=== PATIENT | female | born 1985 | race African-American/Black ===

== ENCOUNTER 2019-09-02 14:11 | Emergency (ER) | payer OTHER, SELFPAY ==
[2019-09-02 14:13] VITALS: BP 123/80; PULSE 89; RESP 18; TEMP 36.4; O2SAT 99
[2019-09-02 14:23] LABS: Basophils Absolute Auto 0.1 K/mm3 (0.0-0.1); Basophils Percent Auto 0.7 % (0.2-1.2); Eosinophils Absolute Auto 0.1 K/mm3 (0-0.3); Eosinophils Percent Auto 1.2 % (0-4.4); Hematocrit 36.3 % (37.0-47.0); Immature Granulocyte Absolute 0.04 K/mm3 (0.00-0.031); Immature Granulocyte Percent A 0.4 % (0-0.5); Lymphocytes Absolute Auto 2.78 K/mm3 (0.9-3.2); Mean Corpuscular HGB Conc 30.3 g/dl (32-36); Mean Corpuscular Hemoglobin 23.3 pg (26-34); Mean Corpuscular Volume 76.9 fl (80-100); Mean Platelet Volume 8.9 fl (7.4-10.4); Monocytes Absolute Auto 0.7 K/mm3 (0.1-0.6); Monocytes Percent Auto 6.1 % (2.6-8.5); Neutrophils Absolute Auto 7.4 K/mm3 (1.3-6.7); Neutrophils Percent Auto 66.6 % (45.5-73.1); Platelet Count Result 464 k/mm3 (150-375); Red Blood Count 4.72 M/mm3 (4.2-5.4); Red Cell Distribution Width 13.2 % (11.5-14.5); White Blood Count 11.1 K/mm3 (4.5-10.0)
[2019-09-02 14:36] LABS: Alanine Aminotransferase 17 U/L (4-35); Albumin Level 4.4 g/dL (3.5-5.1); Alkaline Phosphatase 84 U/L (38-126); Aspartate Amino Transferase 21 U/L (14-36); Bilirubin,Total 0.3 mg/dL (0.2-1.3); Blood Urea Nitrogen 12 mg/dL (7-17); Carbon Dioxide 23 mmol/L (22-30); Chloride 105 mmol/L (98-107); Estimated CRCL calculation 124 ml/min; Estimated Glomerular Filt Rate > 60; Glucose 99 mg/dL (65-105); Lipase 114 U/L (23-300); Potassium 3.8 mmol/L (3.4-5.0); Sodium 139 mmol/L (137-145)
--- NOTE | 2019-09-02 14:38 | ED.NAVMDI ---
HPI - Nausea/Vomiting/Diarrhea General Chief complaint: Abdominal Pain Stated complaint: Diarrhea Time Seen by Provider: 09/02/19 14:25 Source: patient and RN notes reviewed Mode of arrival: ambulatory Limitations: no limitations History of Present Illness HPI Narrative: Pt is a 34 y/o female who presents to the ED with c/o diarrhea which began 4 days ago. Pt states the diarrhea is watery, but she denies any rectal bleeding. She states she had 5 separate episodes of diarrhea yesterday. Pt reports she has not been drinking enough fluids throughout the day. Pt reports intermittent diffuse ABD cramping, a poor appetite, decreased urination, and a headache, but denies a fever, sore throat, a cough, sinus congestion, nausea, or vomiting. She reports she experiences the intermittent ABD cramping when she is laying in bed. She denies anyone around her being sick recently which could have given her something. MD elicited complaint: diarrhea Onset (ago): day(s) (4 days ago) Description of diarrhea: watery Associated abdominal pain: Yes (ABD cramping intermittently) Location of pain: diffuse Radiation: does not radiate Pain consistency: intermittent Quality: cramping Exacerbating factors: none Relieving factors: none Associated symptoms: headaches and loss of appetite Related Data Home Medications Medication Instructions Recorded Confirmed fluoxetine mg 09/02/19 Allergies Allergy/AdvReac Type Severity Reaction Status Date / Time No Known Allergies Allergy Unverified 10/19/17 09:11 Review of Systems Review of Systems: All systems reviewed & are unremarkable except as noted in HPI and below Constitutional: Constitutional: Denies fever(s) and Reports poor appetite ENT: Denies sore throat and Denies other (sinus congestion) Respiratory: Respiratory: Denies cough Gastrointestinal: Gastrointestinal: Reports abdominal pain (diffuse ABD cramping), Denies hematochezia (rectal bleeding), Reports diarrhea, Denies nausea and Denies vomiting Genitourinary: Genitourinary: Reports other (decreased urination) Neurologic: Reports headache(s) [facility] Past Medical History Medical History (Updated 09/02/19 @ 16:33 by Iona Sorensen MD) Deficient knowledge of caesarean delivery Surgical History Surgical History (Updated 09/02/19 @ 14:43 by Cecy Liang) Hx of cholecystectomy Social History Social History (Updated 09/02/19 @ 14:43 by Cecy Ny Smoking status: Never smoker Comments PCP: Dr. Betts Exam Const: General: cooperative, no acute distress and alert Nutritional Appearance: well nourished Orientation/consciousness: patient oriented x3 Limitations: no limitations HENMT: Mouth: Yes lip normal and Yes moist mucous membranes Resp: Effort & Inspection: normal respiratory effort Auscultation: clear to auscultation bilaterally Cardio: Rate: regular rate Rhythm: regular rhythm GI: GI Palp: Yes Soft to palpation, No Guarding due to palpation present (GI) and No Rebound tenderness present Auscultation: normal bowel sounds Skin: General skin exam: normal color Neuro: General: patient oriented x3 Cognition (Neuro): normal cognition Speech: normal speech Extrem: General: normal to inspection, full ROM and no clubbing, cyanosis or edema Psych: Mental Status: mental status grossly normal Affect: normal affect Attitude: cooperative Course Course Emergency Course: Labs unremarkable. Vital signs normal. Patient exam benign. Consistent with viral diarrheal disease. Counseled patient on importance of increasing her hydration. Patient drink fluids in the ED and was able to provide urine sample. Vital Signs Vital signs: Vital Signs Temperature 97.5 F L 09/02/19 14:13 Pulse Rate 89 09/02/19 14:13 Respiratory Rate 18 09/02/19 14:13 Blood Pressure 123/80 09/02/19 14:13 Pulse Oximetry 99 09/02/19 14:13 Temperature 97.5 F L 09/02/19 14:13 Pulse Rate 89 09/02/19 14:13 R
[2019-09-02 15:49] LABS: Add Urine Microscopic? YES; Appearance Urine Clear (Clear); Bilirubin Urine Negative (Negative); Blood Urine 2+ (Negative); Color Urine Yellow (Yellow); Glucose Urine UA Negative (Negative); Ketones Urine Negative (Negative); Leukocyte Esterase Ur 1+ LEU/UL (Negative); Mucus Urine Rare /lpf; Nitrate Urine Negative (Negative); Protein Urine 1+ mg/dL (Negative); Squamous Epithelial Cell Urine Many /hpf (Few); Urobilinogen Urine Negative mg/dL (<2.0)
[2019-09-02 15:54] LABS: Specific Grav Ur 1.031 (1.001-1.035)
== END 2019-09-02 16:45 | disposition home or self-care (01) ==
PROVIDERS: Emergency Medicine; Emergency Provider Emergency Medicine
DX: A08.4 Viral intestinal infection, unspecified (principal)
CPT/HCPCS: 36415; 80053; 81001; 81025; 83690; 85025; 99283